=== PATIENT | male | born 1935 | race Caucasian/White ===

== ENCOUNTER 2016-07-08 12:02 | Emergency (ER) | payer OTHER ==
[~2016-07-08 12:02] MED LIST: ALLOPURINOL100 MG PO; ALLOPURINOL300 MG PO; ATACAND16 MG PO; ATACAND32 MG PO; CALCITRIOL0.25 MCG PO; FLUOCINONIDE0.051; IBUPROFEN400 MG PO; LASIX20 MG PO; METOPROLOL SUCC50 MG PO; MULTIPLE VITAMIN PO; NORCO1 TA1 PO; PRADAXA75 MG PO; VITAMIN D-31000 UNIT PO
--- NOTE | 2016-07-08 13:15 | ED CLINICAL REPORT ---
Clinical Report - Physicians/Mid Levels Located Within [facility] [address] [place] [address] 07/08/2016 12:02 Patient: ENE STUART Time Seen: 12:27; initial patient contact. Arrived- By private vehicle. Historian- patient. HISTORY OF PRESENT ILLNESS Chief Complaint: Injury to right hip and Chief Complaint- pt states he fell a couple of weeks ago, and has persistent pain in the right posterior hip and now into the right thigh and knee. 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 is not on any blood thinners any longer, has a history of atrial fibrillation, rate controlled...no chest sx. The injury happened 3 weeks ago. Fell. Occurred at home. Patient is experiencing mild pain. Patient denies injury to the head or neck. No other injury. REVIEW OF SYSTEMS The patient complains of moderate pain on weight bearing. All systems otherwise negative, except as recorded above. PAST HISTORY See nurses notes. Tetanus immunization status is up-to-date. Problems: Renal Failure. Urinary Retention. Nephropathy. Dialysis. Atrial Fibrillation. Gout. Hypertension. Medications: Hydrochlorothiazide Oral. Furosemide Oral 20 mg, 2x a day. Allergies: No Known Drug Allergy. SOCIAL HISTORY Never smoker. No alcohol use or drug use. ADDITIONAL NOTES The nursing notes have been reviewed with agreement regarding the chief complaint, HPI, ROS, PMH and patient medications and allergies. PHYSICAL EXAM Vital Signs: 07/08/2016 12:12 BP: 157/73. HR: 74. RR: 20. O2 saturation: 97%. Temp: 97.4 F. Pain level now: 9/10. Have been reviewed. Appearance: Alert. Oriented X3. No acute distress. Head: Head atraumatic. Respiratory: No respiratory distress. Abdomen: No visible injury. Soft and nontender. Back: Normal inspection. No tenderness. ROM normal. Skin: Skin intact. Skin warm and dry. Normal skin color. Normal skin turgor. Extremities: Mild soft-tissue tenderness present in the right lateral and posterior hip. Mild bony tenderness present in the right lateral and posterior hip. No signs of infection involving the lower extremities. Right hip: mild tenderness. Limited ROM secondary to pain (diminished flexion, extension and external and internal rotation). Neurovascular intact distally. No erythema, swelling or deformity. The right leg is not shortened, externally rotated or internally rotated. Lower extremity exam otherwise negative. Extremities otherwise negative. Neuro, Vascular and Tendons: Vascular status intact. Sensation intact. Motor intact. Tendon function intact. Gait: Limping gait. (able to bear weight.). Neuro: Oriented X 3. No motor deficit. No sensory deficit. Reflexes normal. LABS, X-RAYS, AND EKG X-Rays: Right hip negative. Rt Hip X-ray: (Name: Ene Stuart : 1935 MR#: [id number] Ordering Provider: TRINH VELARDE Exam(s): XR HIP 2VW W W/O AP PELVIS-RT Date of Exam: 07/08/2016 __ PROCEDURE: XR HIP 2VW W W/O AP PELVIS-RT INDICATION: TRAUMA/INJURY TECHNIQUE: AP view of the pelvis and hips with lateral view of the right hip. COMPARISON: None. FINDINGS: RIGHT HIP: No fracture or dislocation. Mild degenerative changes. PELVIS: Osteopenia. No suspicious osseous lesions. Atherosclerosis of the iliac and femoral arteries. IMPRESSION: 1. No acute changes. Electronically Final signed by:Sylvester Corona MD 07/08/2016 1:36:29 PM Technologist: ALEXANDER). The X-rays were independently viewed by me, interpreted by the radiologist and discussed with the radiologist. PROGRESS AND PROCEDURES Course of Care: Patient is stable. CLINICAL IMPRESSION Sprain of the ischiocapsular ligament of the right hip. INSTRUCTIONS Apply ice for 15 minutes three times a day for three days. You may walk and bear weight as tolerated (use cane as needed for another week or two). No dietary restrictions. Your Current Medications: CONTINUE TAKING THE FOLLOWING MEDICATIONS: Furosemide Oral : 20 mg 2x a day. Hydrochlorothiazide Oral. Prescription Medications: Hydrocodone/APAP 5mg / 325mg: take 1 orally every 8 hours as needed for pain. Dispense twelve (12). No refill. Follow-up: Follow up with your doctor Janelle even if well. Call for an appointment. Understanding of the discharge instructions verbalized by patient and family. Follow-up with: Reji Alonso MD, Family Practice, , [facility], [address] [place] [address] Follow up Sunday if not better. Reason for referral: fall and persistent hip pain, may need PT. (Electronically signed by Trinh Velarde PA-C 07/08/2016 22:41)
--- NOTE | 2016-07-08 13:15 | ED ORDER SUMMARY ---
..... Patient: ENE SOLIS OrderSheet [facility] VisitID: [id number] [address] [place] [address] 80y, M Registration Date/Time: 07/08/2016 ORDER SHEET Weight: 79 kg (stated) Allergies: No Known Drug Allergy GENERAL ORDERS: Hip 2V Right w AP Pelvis (pt fell, not improving with posterior right hp pain and radiating into the medial right thigh and into the knee.) Urgent (12:37 07/08/2016 Shyanne WADDELL) (Ack 12:49 Rebecca) (12:51 Javier) MEDICATION ORDERS: IV FLUIDS: ORDER SHEET NOTES: [Electronically signed by Fabienne Cortez R.N. (17:35 07/08/2016)] [Electronically signed by Lita Cutler PA-C (22:41 07/08/2016)] [Electronically locked/signed by Fabienne Cortez R.N. (17:35 07/08/2016)]
--- NOTE | 2016-07-08 13:15 | ED ORDER SUMMARY ---
..... Patient: ENE SOLIS OrderSheet [facility] VisitID: [id number] [address] [place] [address] 80y, M Registration Date/Time: 07/08/2016 ORDER SHEET Weight: 79 kg (stated) Allergies: No Known Drug Allergy GENERAL ORDERS: Hip 2V Right w AP Pelvis (pt fell, not improving with posterior right hp pain and radiating into the medial right thigh and into the knee.) Urgent (12:37 07/08/2016 Shyanne WADDELL) (Ack 12:49 Rebecca) (12:51 Javier) MEDICATION ORDERS: IV FLUIDS: ORDER SHEET NOTES: [Electronically signed by Fabienne Cortez R.N. (17:35 07/08/2016)] [Electronically signed by Lita Cutler PA-C (22:41 07/08/2016)] [Electronically locked/signed by Fabienne Cortez R.N. (17:35 07/08/2016)]
--- NOTE | 2016-07-08 13:15 | ED CLINICAL REPORT ---
Clinical Report - Physicians/Mid Levels [facility] [address] [place] [address] 07/08/2016 12:02 Patient: ENE STUART Time Seen: 12:27; initial patient contact. Arrived- By private vehicle. Historian- patient. HISTORY OF PRESENT ILLNESS Chief Complaint: Injury to right hip and Chief Complaint- pt states he fell a couple of weeks ago, and has persistent pain in the right posterior hip and now into the right thigh and knee. 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 is not on any blood thinners any longer, has a history of atrial fibrillation, rate controlled...no chest sx. The injury happened 3 weeks ago. Fell. Occurred at home. Patient is experiencing mild pain. Patient denies injury to the head or neck. No other injury. REVIEW OF SYSTEMS The patient complains of moderate pain on weight bearing. All systems otherwise negative, except as recorded above. PAST HISTORY See nurses notes. Tetanus immunization status is up-to-date. Problems: Renal Failure. Urinary Retention. Nephropathy. Dialysis. Atrial Fibrillation. Gout. Hypertension. Medications: Hydrochlorothiazide Oral. Furosemide Oral 20 mg, 2x a day. Allergies: No Known Drug Allergy. SOCIAL HISTORY Never smoker. No alcohol use or drug use. ADDITIONAL NOTES The nursing notes have been reviewed with agreement regarding the chief complaint, HPI, ROS, PMH and patient medications and allergies. PHYSICAL EXAM Vital Signs: 07/08/2016 12:12 BP: 157/73. HR: 74. RR: 20. O2 saturation: 97%. Temp: 97.4 F. Pain level now: 9/10. Have been reviewed. Appearance: Alert. Oriented X3. No acute distress. Head: Head atraumatic. Respiratory: No respiratory distress. Abdomen: No visible injury. Soft and nontender. Back: Normal inspection. No tenderness. ROM normal. Skin: Skin intact. Skin warm and dry. Normal skin color. Normal skin turgor. Extremities: Mild soft-tissue tenderness present in the right lateral and posterior hip. Mild bony tenderness present in the right lateral and posterior hip. No signs of infection involving the lower extremities. Right hip: mild tenderness. Limited ROM secondary to pain (diminished flexion, extension and external and internal rotation). Neurovascular intact distally. No erythema, swelling or deformity. The right leg is not shortened, externally rotated or internally rotated. Lower extremity exam otherwise negative. Extremities otherwise negative. Neuro, Vascular and Tendons: Vascular status intact. Sensation intact. Motor intact. Tendon function intact. Gait: Limping gait. (able to bear weight.). Neuro: Oriented X 3. No motor deficit. No sensory deficit. Reflexes normal. LABS, X-RAYS, AND EKG X-Rays: Right hip negative. Rt Hip X-ray: (Name: Ene Stuart : 1935 MR#: [id number] Ordering Provider: TRINH VELARDE Exam(s): XR HIP 2VW W W/O AP PELVIS-RT Date of Exam: 07/08/2016 __ PROCEDURE: XR HIP 2VW W W/O AP PELVIS-RT INDICATION: TRAUMA/INJURY TECHNIQUE: AP view of the pelvis and hips with lateral view of the right hip. COMPARISON: None. FINDINGS: RIGHT HIP: No fracture or dislocation. Mild degenerative changes. PELVIS: Osteopenia. No suspicious osseous lesions. Atherosclerosis of the iliac and femoral arteries. IMPRESSION: 1. No acute changes. Electronically Final signed by:Sylvester Corona MD 07/08/2016 1:36:29 PM Technologist: ALEXANDER). The X-rays were independently viewed by me, interpreted by the radiologist and discussed with the radiologist. PROGRESS AND PROCEDURES Course of Care: Patient is stable. CLINICAL IMPRESSION Sprain of the ischiocapsular ligament of the right hip. INSTRUCTIONS Apply ice for 15 minutes three times a day for three days. You may walk and bear weight as tolerated (use cane as needed for another week or two). No dietary restrictions. Your Current Medications: CONTINUE TAKING THE FOLLOWING MEDICATIONS: Furosemide Oral : 20 mg 2x a day. Hydrochlorothiazide Oral. Prescription Medications: Hydrocodone/APAP 5mg / 325mg: take 1 orally every 8 hours as needed for pain. Dispense twelve (12). No refill. Follow-up: Follow up with your doctor Janelle even if well. Call for an appointment. Understanding of the discharge instructions verbalized by patient and family. Follow-up with: Reji Alonso MD, Family Practice, , [facility], [address] [place] [address] Follow up Sunday if not better. Reason for referral: fall and persistent hip pain, may need PT. (Electronically signed by Trinh Velarde PA-C 07/08/2016 22:41)
--- NOTE | 2016-07-08 13:15 | ED NURSING NOTES ---
Clinical Report - Nurses [facility] [address] [place] [address] 07/08/2016 12:02 Patient: ENE SOLIS TRIAGE Triage time 12:12. Acuity: LEVEL 3. Chief Complaint: BACK PAIN and (Rt hip and rt knee pain after a fall 3 weeks ago.). Alert. No acute distress. SEPSIS SCREEN: Sepsis Screen: negative. Negative (no infection suspected/documented). --12:22 Katerina Johnson R.N. 12:12 07/08/16. BP: 157/73. HR: 74. RR: 20. O2 saturation: 97%. Temp: 97.4 F. Pain level now: 11/26. --12:22 Katerina Johnson R.N. 12:12 07/08/16. BP: 157/73. HR: 74. RR: 20. O2 saturation: 97%. Temp: 97.4 F. Pain level now: 11/26. --12:22 Katerina Johnson R.N. Weight: 79 kg stated. Height/Length: 64 inches Per Patient. BMI: 29.9. --12:15 Katerina Johnson R.N. Medications Furosemide Oral 20 mg, 2x a day. --12:18 Katerina Johnson R.N. Hydrochlorothiazide Oral. --12:19 Katerina Johnson R.N. Allergies No Known Drug Allergy. --12:17 Katerina Johnson R.N. Medication/allergy information source: the patient. --12:22 Katerina Johnson R.N. History Arrived by private vehicle. Historian: patient and family. Accompanied by friend. Primary physician (silver). The patient has had right leg pain (Rt hip pain and down to the knee.). History of recent trauma- fall. 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 (ice). PAST MEDICAL HX: Tetanus status: unknown. SOCIAL HX: Never smoker. No alcohol use or drug use. FALL RISK ASSESSMENT: Fall risk assessment completed. No fall risk identified. NUTRITIONAL RISK ASSESSMENT: The nutritional risk assessment revealed no deficiencies. FUNCTIONAL ASSESSMENT: Functional assessment: no impairments noted. LEARNING NEEDS ASSESSMENT: The learning needs assessment revealed no barriers. SKIN INTEGRITY ASSESSMENT: Skin integrity risk assessment completed. No skin integrity risk identified. --12:22 Katerina Johnson R.N. PROBLEMS: Hematoma. Renal Failure. Urinary Retention. Nephropathy. Dialysis. Laceration. Tetanus Status. Hemorrhoids. Atrial Fibrillation. Crush Injury, Lower Extremity. Nail Avulsion. Fractured Phalanx (Toe). Last Tetanus. Gout. Hypertension. --12:20 Katerina Johnson R.N. ADDITIONAL SURGERIES: Adenoidectomy. Appendectomy. Colonoscopy. Hemorrhoidectomy. Hernia Repair. Tonsillectomy. --12:20 Katerina Johnson R.N. Interventions ID band on patient. To room. --12:22 Katerina Johnson R.N. PHYSICAL ASSESSMENT To room via wheelchair. Patient gowned. GENERAL / NEURO / PSYCH: Alert. Oriented X 4. Appears in pain and anxious. RESPIRATORY: Respirations not labored. CVS: Capillary refill less than 2 seconds. GI / : Abdomen nontender. EXTREMITIES: Limited ROM present. Sensation intact in extremities. BACK: Limited ROM of the back (Rt knee). --12:22 Katerina Johnson R.N. NURSING PROGRESS NOTES Cold pack applied. Head of bed elevated. Two patient identifiers checked. Call light placed in reach. Side rails up x 1. Bed placed in lowest position. Brakes of bed on. Patient ready for evaluation. --12:23 Katerina Johnson R.N. DISPOSITION / DISCHARGE Departure time: 13:25 Jul 08 2016. Condition at departure: improved and stable. No learning barriers present. Reviewed medication(s) side effects, precautions and dosing information. Prescription(s) given to the patient. Patient verbalized understanding. Written instructions provided in Malian. The patient was discharged by the physician construction management assistant. He was discharged home and accompanied by flyer repairer. He left the Emergency Department in a wheelchair and via private vehicle. Communication Technician driving. --17:35 Fabienne Cortez R.N. 17:33 07/08/16. BP: deferred. Additional comments: Pt refused. In wheelchair outside of room at discharge. --17:35 Fabienne Cortez R.N. Locked/Released at 07/08/2016 17:35 by Fabienne Cortez R.N.
--- NOTE | 2016-07-08 13:15 | ED NURSING NOTES ---
Clinical Report - Nurses [facility] [address] [place] [address] 07/08/2016 12:02 Patient: ENE SOLIS TRIAGE Triage time 12:12. Acuity: LEVEL 3. Chief Complaint: BACK PAIN and (Rt hip and rt knee pain after a fall 3 weeks ago.). Alert. No acute distress. SEPSIS SCREEN: Sepsis Screen: negative. Negative (no infection suspected/documented). --12:22 Katerina Johnson R.N. 12:12 07/08/16. BP: 157/73. HR: 74. RR: 20. O2 saturation: 97%. Temp: 97.4 F. Pain level now: 11/26. --12:22 Katerina Johnson R.N. 12:12 07/08/16. BP: 157/73. HR: 74. RR: 20. O2 saturation: 97%. Temp: 97.4 F. Pain level now: 11/26. --12:22 Katerina Johnson R.N. Weight: 79 kg stated. Height/Length: 64 inches Per Patient. BMI: 29.9. --12:15 Katerina Johnson R.N. Medications Furosemide Oral 20 mg, 2x a day. --12:18 Katerina Johnson R.N. Hydrochlorothiazide Oral. --12:19 Katerina Johnson R.N. Allergies No Known Drug Allergy. --12:17 Katerina Johnson R.N. Medication/allergy information source: the patient. --12:22 Katerina Johnson R.N. History Arrived by private vehicle. Historian: patient and family. Accompanied by friend. Primary physician (silver). The patient has had right leg pain (Rt hip pain and down to the knee.). History of recent trauma- fall. 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 (ice). PAST MEDICAL HX: Tetanus status: unknown. SOCIAL HX: Never smoker. No alcohol use or drug use. FALL RISK ASSESSMENT: Fall risk assessment completed. No fall risk identified. NUTRITIONAL RISK ASSESSMENT: The nutritional risk assessment revealed no deficiencies. FUNCTIONAL ASSESSMENT: Functional assessment: no impairments noted. LEARNING NEEDS ASSESSMENT: The learning needs assessment revealed no barriers. SKIN INTEGRITY ASSESSMENT: Skin integrity risk assessment completed. No skin integrity risk identified. --12:22 Katerina Johnson R.N. PROBLEMS: Hematoma. Renal Failure. Urinary Retention. Nephropathy. Dialysis. Laceration. Tetanus Status. Hemorrhoids. Atrial Fibrillation. Crush Injury, Lower Extremity. Nail Avulsion. Fractured Phalanx (Toe). Last Tetanus. Gout. Hypertension. --12:20 Katerina Johnson R.N. ADDITIONAL SURGERIES: Adenoidectomy. Appendectomy. Colonoscopy. Hemorrhoidectomy. Hernia Repair. Tonsillectomy. --12:20 Katerina Johnson R.N. Interventions ID band on patient. To room. --12:22 Katerina Johnson R.N. PHYSICAL ASSESSMENT To room via wheelchair. Patient gowned. GENERAL / NEURO / PSYCH: Alert. Oriented X 4. Appears in pain and anxious. RESPIRATORY: Respirations not labored. CVS: Capillary refill less than 2 seconds. GI / : Abdomen nontender. EXTREMITIES: Limited ROM present. Sensation intact in extremities. BACK: Limited ROM of the back (Rt knee). --12:22 Katerina Johnson R.N. NURSING PROGRESS NOTES Cold pack applied. Head of bed elevated. Two patient identifiers checked. Call light placed in reach. Side rails up x 1. Bed placed in lowest position. Brakes of bed on. Patient ready for evaluation. --12:23 Katerina Johnson R.N. DISPOSITION / DISCHARGE Departure time: 13:25 Jul 08 2016. Condition at departure: improved and stable. No learning barriers present. Reviewed medication(s) side effects, precautions and dosing information. Prescription(s) given to the patient. Patient verbalized understanding. Written instructions provided in Cypriot. The patient was discharged by the physician bilingual medical assistant. He was discharged home and accompanied by certified prosthetist vice president. He left the Emergency Department in a wheelchair and via private vehicle. Instructional Consultant driving. --17:35 Fabienne Cortez R.N. 17:33 07/08/16. BP: deferred. Additional comments: Pt refused. In wheelchair outside of room at discharge. --17:35 Fabienne Cortez R.N. Locked/Released at 07/08/2016 17:35 by Fabienne Cortez R.N.
--- NOTE | 2016-07-08 13:36 | DIAGNOSTIC IMAGING REPORT ---
PROCEDURE: XR HIP 2VW W W/O AP PELVIS-RT INDICATION: TRAUMA/INJURY TECHNIQUE: AP view of the pelvis and hips with lateral view of the right hip. COMPARISON: None. FINDINGS: RIGHT HIP: No fracture or dislocation. Mild degenerative changes. PELVIS: Osteopenia. No suspicious osseous lesions. Atherosclerosis of the iliac and femoral arteries. IMPRESSION: 1. No acute changes.
--- NOTE | 2016-07-08 22:41 | ED MED RECONCILIATION SUMMARY ---
Patient: ENE SOLIS Medication Reconciliation Report [facility] VisitID: [id number] [address] [place] [address] 80y, M Registration Date/Time: 07/08/2016 Weight: 79 kg Height/Length: 64 in. BMI: 29.9 ALLERGIES: No Known Drug Allergy The patient's Home Medications are listed below: CONTINUE TAKING THE FOLLOWING MEDICATIONS: Furosemide Oral 20 mg, 2x a day Hydrochlorothiazide Oral The source(s) of the original Home Medication information: patient The following Medications were given to the patient in the Emergency Department: None. The following Medications were prescribed to the patient: Hydrocodone/APAP 5mg / 325mg: take 1 orally every 8 hours as needed for pain. Dispense twelve (12). No refill. -- Lita Cutler PA-C
--- NOTE | 2016-07-08 22:41 | ED MAR SUMMARY ---
..... Medication Administration Record [facility] [address], [place] [id number] Patient: ENE SOLIS Visit ID: [id number] 80y, M Weight: 79.0 kg Height/Length: 64 in BMI: 29.9 ALLERGIES: No Known Drug Allergy
--- NOTE | 2016-07-08 22:41 | ED DISCHARGE INSTRUCTIONS ---
Patient: ENE SOLIS General Instructions [facility] VisitID: [id number] [place] [address] 80y, M Registration Date/Time: 07/08/2016 Sprain of the ischiocapsular ligament of the right hip. INSTRUCTIONS Apply ice for 15 minutes three times a day for three days. You may walk and bear weight as tolerated (use cane as needed for another week or two). No dietary restrictions. Your Current Medications: CONTINUE TAKING THE FOLLOWING MEDICATIONS: Furosemide Oral : 20 mg 2x a day. Hydrochlorothiazide Oral. Prescription Medications: Hydrocodone/APAP 5mg / 325mg: take 1 orally every 8 hours as needed for pain. Dispense twelve (12). No refill. Follow-up: Follow up with your doctor Janelle even if well. Call for an appointment. Understanding of the discharge instructions verbalized by patient and family. Follow-up with: Reji Alonso MD, [facility], , [facility], [address] [place] [address] Follow up Sunday if not better. Reason for referral: fall and persistent hip pain, may need PT. You may walk and bear weight as tolerated (use cane as needed for another week or two). (Electronically signed by iLta Cutler PA-C 07/08/2016 22:41)
--- NOTE | 2016-07-08 22:41 | ED DISCHARGE INSTRUCTIONS ---
Patient: ENE SOLIS General Instructions [facility] VisitID: [id number] [place] [address] 80y, M Registration Date/Time: 07/08/2016 Sprain of the ischiocapsular ligament of the right hip. INSTRUCTIONS Apply ice for 15 minutes three times a day for three days. You may walk and bear weight as tolerated (use cane as needed for another week or two). No dietary restrictions. Your Current Medications: CONTINUE TAKING THE FOLLOWING MEDICATIONS: Furosemide Oral : 20 mg 2x a day. Hydrochlorothiazide Oral. Prescription Medications: Hydrocodone/APAP 5mg / 325mg: take 1 orally every 8 hours as needed for pain. Dispense twelve (12). No refill. Follow-up: Follow up with your doctor Janelle even if well. Call for an appointment. Understanding of the discharge instructions verbalized by patient and family. Follow-up with: Reji Alonso MD, [facility], , [facility], [address] [place] [address] Follow up Sunday if not better. Reason for referral: fall and persistent hip pain, may need PT. You may walk and bear weight as tolerated (use cane as needed for another week or two). (Electronically signed by Lita Cutler PA-C 07/08/2016 22:41)
--- NOTE | 2016-07-08 22:41 | ED MAR SUMMARY ---
..... Medication Administration Record [facility] [address], [place] [id number] Patient: ENE SOLIS Visit ID: [id number] 80y, M Weight: 79.0 kg Height/Length: 64 in BMI: 29.9 ALLERGIES: No Known Drug Allergy
--- NOTE | 2016-07-08 22:41 | ED MED RECONCILIATION SUMMARY ---
Patient: ENE SOLIS Medication Reconciliation Report [facility] VisitID: [id number] [address] [place] [address] 80y, M Registration Date/Time: 07/08/2016 Weight: 79 kg Height/Length: 64 in. BMI: 29.9 ALLERGIES: No Known Drug Allergy The patient's Home Medications are listed below: CONTINUE TAKING THE FOLLOWING MEDICATIONS: Furosemide Oral 20 mg, 2x a day Hydrochlorothiazide Oral The source(s) of the original Home Medication information: patient The following Medications were given to the patient in the Emergency Department: None. The following Medications were prescribed to the patient: Hydrocodone/APAP 5mg / 325mg: take 1 orally every 8 hours as needed for pain. Dispense twelve (12). No refill. -- Lita Cutler PA-C
== END 2016-07-08 13:25 | disposition home or self-care (01) ==
LOC: ED SRH 12:02
DX: S73.121A Ischiocapsular ligament sprain of right hip, initial encounter (principal); W19.XXXA Unspecified fall, initial encounter; Y93.9 Activity, unspecified; Y99.9 Unspecified external cause status; Y92.9 Unspecified place or not applicable; I10 Essential (primary) hypertension; N19 Unspecified kidney failure; Z99.2 Dependence on renal dialysis; Z79.899 Other long term (current) drug therapy

== ENCOUNTER 2016-07-10 09:39 | Outpatient (CLI) | payer OTHER ==
--- NOTE | 2016-07-10 10:20 | DIAGNOSTIC IMAGING REPORT ---
PROCEDURE: XR LUMBAR SPINE 2 OR 3 VIEWS INDICATION: BACK PAIN LUMBAR TECHNIQUE: Three views. COMPARISON: None. FINDINGS: There is a grade 1 spondylolisthesis at L5-S1. There are also bilateral pars defects at this level. There is also a compression deformity at L3. This represents one third of the vertebral body height. IMPRESSION: 1. L3 compression deformity. 2. Pars defects and a grade 1 spondylolisthesis at L5-S1.
== END 2016-07-10 23:00 ==
LOC: XR SRH 09:39
DX: M54.5 Low back pain (principal); M43.9 Deforming dorsopathy, unspecified; M43.17 Spondylolisthesis, lumbosacral region

== ENCOUNTER 2016-08-01 18:19 | Outpatient (CLI) | payer OTHER ==
--- NOTE | 2016-08-01 18:57 | DIAGNOSTIC IMAGING REPORT ---
PROCEDURE: XR CHEST 2 VIEW INDICATION: TUBERCULOSIS TECHNIQUE: PA and lateral view. COMPARISON: None. FINDINGS: Dual lead pacemaker with mild to moderate cardiomegaly and small right pleural effusion. Right hemithorax volume loss. No infiltrates. Mediastinum and pulmonary vessels are normal. Right-sided large bore central line in satisfactory position. Mild degenerative changes of the spine. IMPRESSION: 1. Pacemaker with cardiomegaly and small right pleural effusion consistent with mild CHF 2. Central line in satisfactory position
== END 2016-08-01 23:00 ==
LOC: XR SRH 18:19
DX: A15.9 Respiratory tuberculosis unspecified (principal); I51.7 Cardiomegaly; J90 Pleural effusion, not elsewhere classified; Z95.0 Presence of cardiac pacemaker